=== PATIENT | female | born 1990 | race Caucasian/White ===

== ENCOUNTER 2024-08-10 11:39 | Outpatient (CLI) | payer OTHER | END 2024-08-10 12:50 | disposition home or self-care (01) | LOC: NST 11:39 | PROVIDERS: ATTEND Obstetrics & Gynecology Maternal & Fetal Medicine | DX: Z34.83 Encounter for supervision of other normal pregnancy, third trimester (principal) ==

== ENCOUNTER 2024-08-16 11:18 | Inpatient (IN) | payer OTHER ==
[~2024-08-16] VITALS: Ht 172.7 cm; Wt 4.1 kg
[2024-08-16 12:53] VITALS: BP 109/59
[2024-08-16] MEDS ORDERED: PRENATABS RX T1 EACH PO (13:10)
[2024-08-16] MEDS ORDERED: MISOPROSTOL 25 MCG TABLET VAG ONE (13:30)
[2024-08-16] MEDS ORDERED: RINGERS SOLUTION,LACTATED 1,000 ML IV SCH (13:30)
[2024-08-16 14:23] LABS: HEMATOCRIT 35.6 % (36.0-45.00); MEAN CORPUSCULAR HEMOGLOBIN 32.2 pg (27.00-32.0); MEAN CORPUSCULAR HGB CONC 33.6 g/dl (32.0-36.0); PLATELET COUNT 166 K/uL (150-450); RED BLOOD COUNT 3.71 M/uL (4.00-6.00); RED CELL DISTRIBUTION WIDTH 15.1 % (11.5-14.5)
[2024-08-16 15:17] LABS: INR 1.01; PARTIAL THROMBOPLASTIN TIME 26.8 SECONDS (22.0-34.0)
[2024-08-16 15:18] VITALS: BP 113/71
[2024-08-16 15:20] LABS: BILIRUBIN TOTAL 0.37 mg/dL (0.3-1.2); CALCIUM 9.4 mg/dL (8.5-10.1); CREATININE SERUM 0.49 mg/dL (0.55-1.02); GFR 142.9; GLOBULINA 3.5 G/DL (2.4-3.5); POTASSIUM 4.43 mEq/L (3.5-5.1); TOTAL PROTEIN 6.5 gm/dL (6.4-8.2)
[2024-08-17 01:00] VITALS: BP 101/61
[2024-08-17] MEDS ORDERED: MORPHINE SULFATE 4 MG/ML CARTRIDGE IV PRN ×2 (02:00→14:30)
[2024-08-17 04:02] VITALS: BP 99/62
[2024-08-17] MEDS ORDERED: OXYTOCIN 500 ML IV ONE (06:45)
[2024-08-17 08:04] VITALS: BP 102/70
[2024-08-17] MEDS ORDERED: FAMOTIDINE/PF 20 MG in 0.9 % SODIUM CHLORIDE 8 ML IV PUSH SCH (09:00)
[2024-08-17 12:00] VITALS: BP 128/78
[2024-08-17] MEDS ORDERED: OXYTOCIN 1,000 ML IV ONE (14:45)
[2024-08-17] MEDS ORDERED: RINGERS SOLUTION,LACTATED 1,000 ML IV SCH (14:45)
[2024-08-17] MEDS ORDERED: OXYTOCIN 10 UNITS/ML VIAL IV ONE (15:15)
[2024-08-17] MEDS ORDERED: ERYTHROMYCIN BASE OPHT 1GM EACH TUBE OP ONE (15:15)
[2024-08-17] MEDS ORDERED: SIMETHICONE 125 MG CAPSULE PO SCH (17:00)
[2024-08-17] MEDS ORDERED: GABAPENTIN 300 MG CAPSULE PO SCH (17:00)
[2024-08-17 17:31] VITALS: BP 103/73
[2024-08-17] MEDS ORDERED: ACETAMINOPHEN 500 MG GEL..CAP PO SCH (18:00)
[2024-08-17] MEDS ORDERED: ONDANSETRON HCL 2 MG/ML VIAL IV SCH (18:00)
[2024-08-17] MEDS ORDERED: KETOROLAC TROMETHAMINE 30 MG VIAL IV SCH (18:00)
[2024-08-18 00:57] VITALS: BP 100/60
[2024-08-18 05:15] VITALS: BP 100/62
[2024-08-18 06:25] LABS: HEMATOCRIT 28.8 % (36.0-45.00); HEMOGLOBIN 10.1 g/dL (12.0-15.00); MEAN CELL VOLUME 95.4 fL (80.00-100.00); MEAN CORPUSCULAR HEMOGLOBIN 33.4 pg (27.00-32.0); PLATELET COUNT 133 K/uL (150-450); RED BLOOD COUNT 3.02 M/uL (4.00-6.00)
[2024-08-18] MEDS ORDERED: OxyCODONE HCL 5 MG TABLET (ROXICODONE) PO PRN (08:00)
[2024-08-18] MEDS ORDERED: KETOROLAC TROMETHAMINE 10 MG TABLET PO SCH (08:00)
[2024-08-18 09:00] VITALS: BP 96/62
[2024-08-18] MEDS ORDERED: DOCUSATE SODIUM 100MG CAP PO SCH (09:00)
[2024-08-18 16:34] VITALS: BP 111/76
[2024-08-19 01:34] VITALS: BP 112/78
[2024-08-19 05:29] VITALS: BP 100/60
[2024-08-19 05:39] VITALS: BP 100/60
[2024-08-19 09:43] VITALS: BP 113/77
== END 2024-08-19 15:11 | disposition home or self-care (01) | DRG 788 ==
LOC: OB/GYN → LDR 11:18 → OB/GYN 08-17 15:06
PROVIDERS: Obstetrics & Gynecology; ADMIT Obstetrics & Gynecology Maternal & Fetal Medicine; ATTEND Obstetrics & Gynecology Maternal & Fetal Medicine
PROC: 3E0P7VZ Introduction of Hormone into Female Reproductive, Via Natural or Artificial Opening (ICD-10-PCS; 2024-08-16)
PROC: 4A1HXCZ Monitoring of Products of Conception, Cardiac Rate, External Approach (ICD-10-PCS; 2024-08-16)
PROC: 3E033VJ Introduction of Other Hormone into Peripheral Vein, Percutaneous Approach (ICD-10-PCS; 2024-08-17)
PROC: 10D00Z1 Extraction of Products of Conception, Low, Open Approach (ICD-10-PCS; principal; 2024-08-17 13:30)
DX: O61.0 Failed medical induction of labor (principal); O36.8130 Decreased fetal movements, third trimester, not applicable or unspecified; O36.63X0 Maternal care for excessive fetal growth, third trimester, not applicable or unspecified; Z3A.39 39 weeks gestation of pregnancy; Z37.0 Single live birth; Z20.822 Contact with and (suspected) exposure to COVID-19

== ENCOUNTER 2024-09-07 23:35 | Inpatient (IN) | payer OTHER ==
[~2024-09-07] VITALS: Ht 172.7 cm; Wt 88.5 kg
[~2024-09-07 23:35] MED LIST: PRENATABS RX T1 EACH PO
[2024-09-07] MEDS ORDERED: KETOROLAC TROMETHAMINE 60 MG VIAL IM ONE (23:45)
--- NOTE | 2024-09-07 23:58 | NUR ---
PTE ALERTA Y ORIENTADA X3 QUIEN REFIERE VENIR POR DOLOR DE ESPALDA BAJA Y QUE IRRADEA HASTA DEBAJO DEL SENO DERECHO. PTE REFIERE KIMBERLYN TENIDO CESAREA HACE 3 SEMANAS Y MD PINCHARAL 8 VECES Y NO PODER PONERLE LA EPIDURAL. LUEGO DE ESTO PTE VERBALIZA DOLOR SEGUIR INTENSIFICANDO
[2024-09-08] MEDS ORDERED: FAMOTIDINE/PF 20 MG/2 ML VIAL IV PUSH STA (00:33)
[2024-09-08] MEDS ORDERED: PROMETHAZINE HCL 50 MG/ML AMPUL IM STA (00:33)
[2024-09-08] MEDS ORDERED: RINGERS SOLUTION,LACTATED 1,000 ML IV ONE (00:45)
[2024-09-08 00:52] LABS: HEMATOCRIT 39.9 % (36.0-45.00); HEMOGLOBIN 13.7 g/dL (12.0-15.00); MEAN CELL VOLUME 94.6 fL (80.00-100.00); MEAN CORPUSCULAR HEMOGLOBIN 32.4 pg (27.00-32.0); MEAN CORPUSCULAR HGB CONC 34.3 g/dl (32.0-36.0); PLATELET COUNT 196 K/uL (150-450); RED BLOOD COUNT 4.22 M/uL (4.00-6.00); RED CELL DISTRIBUTION WIDTH 14.4 % (11.5-14.5)
[2024-09-08 01:14] LABS: ALBUMIN 3.4 gm/dL (3.4-5.0); BILIRUBIN TOTAL 0.85 mg/dL (0.3-1.2); BILIRUBIN,CONJUGATED 0.47 mg/dL (0.0-0.2); BILIRUBIN,UNCONJUGATED 0.38 mg/dL (0.0-0.6); CREATININE SERUM 0.93 mg/dL (0.55-1.02); GFR 68.21; GLOBULINA 3.8 G/DL (2.4-3.5); POTASSIUM 3.48 mEq/L (3.5-5.1); TOTAL PROTEIN 7.2 gm/dL (6.4-8.2)
[2024-09-08 01:16] LABS: PH,URINE 8.5 (5.0-8.0); URINE APPEARANCE Clear; URINE BILIRRUBIN Negative (NEGATIVE); URINE BLOOD Negative; URINE COLOR Yellow; URINE GLUCOSE Negative (NEGATIVE); URINE KETONE Negative (NEGATIVE); URINE LEUKOCYTE Small; URINE NITRATE Negative; URINE PROTEIN 30 (NEGATIVE)
[2024-09-08 01:20] LABS: URINE BACTERIA 36.7 uL (0.0-1933); URINE EPITHELIAL CELLS 6.8 uL (0.0-38.8); URINE RBC 64.6 uL (0.0-20.8)
[2024-09-08 01:22] LABS: INR 1.07; PROTHROMBIN TIME 11.6 SECONDS (9.0-11.5)
--- NOTE | 2024-09-08 01:23 | NUR ---
SE ORIENTA A PTE SOBRE TX MEDICO, SE AMDINISTRAN MEDS ANGIE ORDEN MEDICA, VENOPUNCION PATENTE RONY DE EDEMA Y ERITEMA.
[2024-09-08 01:31] LABS: URINE CAST 0.29 uL (0.0-1.40)
--- NOTE | 2024-09-08 01:37 | NUR ---
SE NOTIFICA SONOGRAMA A MS ANNETTE.
[2024-09-08] MEDS ORDERED: CEFTRIAXONE SODIUM 1,000 MG VIAL IV STA (06:00)
--- NOTE | 2024-09-08 07:47 | NUR ---
SE RECIBE PTE FEMENINA DE 34 YRS ALERTA CONCIENTE Y TRANQUILA EN MARYANA CON BARBDAS ELEVADA. SE LE JÚNIOR S/V Y SE DOCUMENTA. SE MANTIENE AL MOMENKYO RONY D DE DOLOR Y SE MANTIENE CONSULTADO CON EL AP PORTER.SE MANTIENE BAJO OBSERVACION.
[2024-09-08] MEDS ORDERED: CEFTRIAXONE SODIUM 2,000 MG in 0.9 % SODIUM CHLORIDE 100 ML IV SCH (10:22)
[2024-09-08] MEDS ORDERED: MORPHINE SULFATE 4 MG/ML VIAL IV PRN (10:30)
[2024-09-08] MEDS ORDERED: 0.9 % SODIUM CHLORIDE 1,000 ML IV SCH (10:30)
[2024-09-08] MEDS ORDERED: POTASSIUM CHLORIDE/NACL 0.9% 1,000 ML IV ONE (10:30)
[2024-09-08 10:41] VITALS: BP 115/76
[2024-09-08 13:26] LABS: INR 1.04; PARTIAL THROMBOPLASTIN TIME 26.6 SECONDS (22.0-34.0); PROTHROMBIN TIME 11.3 SECONDS (9.0-11.5)
[2024-09-08 13:34] LABS: CHOL HDL RATIO 3.5 (0-5.0)
[2024-09-08 14:57] VITALS: BP 114/82; O2SAT 99
[2024-09-08 17:00] VITALS: BP 107/57; O2SAT 96
[2024-09-09 00:07] VITALS: BP 83/52; O2SAT 99
[2024-09-09 04:32] LABS: HEMATOCRIT 39.4 % (36.0-45.00); HEMOGLOBIN 13.5 g/dL (12.0-15.00); MEAN CELL VOLUME 94.5 fL (80.00-100.00); MEAN CORPUSCULAR HEMOGLOBIN 32.4 pg (27.00-32.0); MEAN CORPUSCULAR HGB CONC 34.3 g/dl (32.0-36.0); PLATELET COUNT 193 K/uL (150-450); RED BLOOD COUNT 4.18 M/uL (4.00-6.00); RED CELL DISTRIBUTION WIDTH 14.2 % (11.5-14.5)
[2024-09-09] MEDS ORDERED: FAMOTIDINE/PF 20 MG in 0.9 % SODIUM CHLORIDE 100 ML IV SCH (09:00)
[2024-09-09 09:46] VITALS: BP 119/80; O2SAT 97
[2024-09-09 12:58] LABS: ALBUMIN 3.3 gm/dL (3.4-5.0); BILIRUBIN TOTAL 0.32 mg/dL (0.3-1.2); CALCIUM 8.8 mg/dL (8.5-10.1); CREATININE SERUM 0.71 mg/dL (0.55-1.02); GFR 93.14; GLOBULINA 3.4 G/DL (2.4-3.5); POTASSIUM 3.86 mEq/L (3.5-5.1); TOTAL PROTEIN 6.7 gm/dL (6.4-8.2)
== END 2024-09-09 15:45 | disposition home or self-care (01) | DRG 446 ==
LOC: ER 23:35 → SEC-K 09-08 10:30 → SURG 09-08 10:30 → SURH 09-08 16:47 → SURG 09-08 20:32
PROVIDERS: General Practice; ADMIT Student in an Organized Health Care Education/Training Program; ATTEND Student in an Organized Health Care Education/Training Program
PROC: BW40ZZZ Ultrasonography of Abdomen (ICD-10-PCS; principal; 2024-09-08)
PROC: BW21ZZZ Computerized Tomography (CT Scan) of Abdomen and Pelvis (ICD-10-PCS; 2024-09-08)
DX: K80.20 Calculus of gallbladder without cholecystitis without obstruction (principal); R10.9 Unspecified abdominal pain; R11.10 Vomiting, unspecified; Z20.822 Contact with and (suspected) exposure to COVID-19

== ENCOUNTER 2025-07-20 12:03 | Inpatient (IN) | payer OTHER ==
[~2025-07-20] VITALS: Ht 172.7 cm; Wt 3.6 kg
[2025-07-20 12:36] LABS: BASO % 0.3 % (0.1-1.2); EOS # 0.08 (0.04-0.54); EOS % 1.1 % (0.7-7.0); LYMPH # 1.85 (1.18-3.74); LYMPH % 25.8 % (19.3-53.1); MEAN PLATELET VOLUME 11.20 fl (9.4-12.4); MONO # 0.39 (0.24-0.82); MONO % 5.4 % (4.7-12.5); NEUT # 4.82 (1.56-6.13); NEUT % 67.1 % (34.0-71.1); RED CELL DISTRIBUTION WIDTH 13.7 % (11.6-14.4)
[2025-07-20 12:56] LABS: INR 0.99
[2025-07-20 13:01] LABS: ALT/SGPT 18.0 U/L (12-78); AST/SGOT 17.0 U/L (15-37); BILIRUBIN TOTAL 0.31 mg/dL (0.3-1.2); BUN CREA RATIO 20.0 (7.0-25.0); CREATININE SERUM 0.5 mg/dL (0.55-1.02); GFR 139.6; GLOBULINA 3.6 G/DL (2.4-3.5); GLUCOSE FASTING 100.0 mg/dL (65-100); OSMOLALITY SERUM 280.0 MOSM/KG (275-295)
[2025-08-08 08:31] VITALS: BP 105/71
[2025-08-08] MEDS ORDERED: CEFAZOLIN SODIUM 1,000 MG VIAL IV SCH (09:00)
[2025-08-08] MEDS ORDERED: CITRIC ACID/SODIUM CITRATE 30 ML BLIST.PACK PO SCH (09:00)
[2025-08-08] MEDS ORDERED: RINGERS SOLUTION,LACTATED 1,000 ML IV SCH ×2 (09:00→14:30)
[2025-08-08] MEDS ORDERED: PRENATAL TABLE1 EAC1 PO (09:16)
[2025-08-08] MEDS ORDERED: PEPCID AC20 MG PO (09:16)
[2025-08-08] MEDS ORDERED: OXYTOCIN 10 UNITS/ML VIAL ONE ×2 (10:34→15:42)
[2025-08-08] MEDS ORDERED: ERYTHROMYCIN BASE OPHT 1GM EACH TUBE OP ONE (10:35)
[2025-08-08] MEDS ORDERED: MORPHINE SULFATE 4 MG/ML CARTRIDGE IV PRN (14:30)
[2025-08-08] MEDS ORDERED: OXYTOCIN 1,000 ML IV SCH (14:30)
[2025-08-08 16:15] VITALS: BP 128/67
[2025-08-08] MEDS ORDERED: SIMETHICONE 125 MG CAPSULE PO SCH (17:00)
[2025-08-08] MEDS ORDERED: GABAPENTIN 300 MG CAPSULE PO SCH (17:00)
[2025-08-08] MEDS ORDERED: ONDANSETRON HCL 2 MG/ML VIAL IV SCH (18:00)
[2025-08-08] MEDS ORDERED: ACETAMINOPHEN 500 MG GEL..CAP PO SCH (18:00)
[2025-08-08] MEDS ORDERED: KETOROLAC TROMETHAMINE 30 MG VIAL IV SCH ×2 (18:00)
[2025-08-08 20:00] VITALS: BP 104/67
[2025-08-09] VITALS: BP 107/68
[2025-08-09 06:56] LABS: BASO % 0.2 % (0.1-1.2); EOS # 0.04 (0.04-0.54); EOS % 0.5 % (0.7-7.0); LYMPH # 1.12 (1.18-3.74); LYMPH % 12.8 % (19.3-53.1); MEAN PLATELET VOLUME 11.50 fl (9.4-12.4); MONO # 0.54 (0.24-0.82); MONO % 6.2 % (4.7-12.5); NEUT # 7.04 (1.56-6.13); NEUT % 80.2 % (34.0-71.1); RED CELL DISTRIBUTION WIDTH 13.8 % (11.6-14.4)
[2025-08-09] MEDS ORDERED: FF) RHO(D) IMMUNE GLOBULIN (POM) IM ONE (07:30)
[2025-08-09] MEDS ORDERED: OxyCODONE HCL 5 MG TABLET (ROXICODONE) PO PRN (08:00)
[2025-08-09] MEDS ORDERED: KETOROLAC TROMETHAMINE 10 MG TABLET PO SCH (08:00)
[2025-08-09 08:52] VITALS: BP 103/65
[2025-08-09] MEDS ORDERED: DOCUSATE SODIUM 100MG CAP PO SCH (09:00)
[2025-08-09 17:39] VITALS: BP 115/77
[2025-08-10 00:44] VITALS: BP 110/76
[2025-08-10 08:50] VITALS: BP 118/75
== END 2025-08-10 12:32 | disposition home or self-care (01) | DRG 788 ==
LOC: LDR 08-08 08:30 → O/R 08-08 10:49 → OB/GYN 08-08 12:33 → LDR 08-09 11:13 → OB/GYN 08-09 15:13
PROVIDERS: ADMIT Obstetrics & Gynecology; ATTEND Obstetrics & Gynecology
PROC: 4A1HXCZ Monitoring of Products of Conception, Cardiac Rate, External Approach (ICD-10-PCS; 2025-08-08)
PROC: 10D00Z1 Extraction of Products of Conception, Low, Open Approach (ICD-10-PCS; principal; 2025-08-08 10:15)
DX: O34.211 Maternal care for low transverse scar from previous cesarean delivery (principal); Z3A.39 39 weeks gestation of pregnancy; Z37.0 Single live birth